=== PATIENT | male | born 1995 | race Caucasian/White ===

== ENCOUNTER 2017-05-26 01:55 | Emergency (ER) | payer OTHER ==
[2017-05-26] MEDS ORDERED: DEXAMETHASONE 10 MG/ML VIAL PO ONE (02:11)
[2017-05-26] MEDS ORDERED: IBUPROFEN 200 MG TAB PO ONE (02:11)
--- NOTE | 2017-05-26 02:19 | EDPHY ---
H & P Stated Complaint: THROAT SWELLING AND WHITE SPOTS FOR DAYS Time Seen by Provider: 05/26/17 02:04 HPI/ROS: Chief Complaint: Throat pain HPI: 21-year-old male's has been having progressively worse sore throat for the past 3 days. Patient states symptoms started off as a viral upper respiratory type symptoms with cough and congestion. Does sometimes have gone he has been having worsening throat pain. Hurts to swallow. He is able swallow liquids and solids. Does not have a history of similar episodes in the past. No other recent illness. He is up-to-date on his immunizations. Does not have a history of strep throat as a child. ROS: 10 point Review of Systems is negative except as noted in the HPI. PMH: None Social History: No smoking, occasional alcohol, no recreational drug use Family History: non-contributory Physical Exam: Gen: Awake, Alert, No Distress HEENT: Nose: no rhinorrhea Eyes: PERRLA, EOMI Mouth: Moist mucosa oropharynx: He has got significantly hypertrophied tonsils with exudate and moderate erythema. Uvula is midline. There is no a symmetric swelling to suggest peritonsillar abscess. Airway is patent Neck: Supple, no JVD Chest: nontender, lungs clear to auscultation Heart: S1, S2 normal, no murmur Abd: Soft, non-tender, no guarding Back: no CVA tenderness, no midline tenderness Ext: no edema, non-tender Skin: no rash Neuro: CN II-XII intact, Sensation grossly intact, Strength 5/5 in bilateral upper and lower extremities - Personal History Current Tetanus/Diphtheria Vaccine: Yes Current Tetanus Diphtheria and Acellular Pertussis (TDAP): Yes - Medical/Surgical History Hx Asthma: No Hx Chronic Respiratory Disease: No Hx Diabetes: No Hx Cardiac Disease: No Hx Renal Disease: No Hx Cirrhosis: No Hx Alcoholism: No Hx HIV/AIDS: No Hx Splenectomy or Spleen Trauma: No Other PMH: DENIES - Social History Smoking Status: Never smoked Constitutional: Initial Vital Signs Temperature (C) 36.6 C 05/26/17 01:58 Heart Rate 65 05/26/17 01:58 Respiratory Rate 18 05/26/17 01:58 Blood Pressure 134/88 H 05/26/17 01:58 O2 Sat (%) 98 05/26/17 01:58 O2 Delivery Mode Room Air Allergies/Adverse Reactions: CEFALOSPORINS Allergy (Uncoded 05/26/17 02:01) Home Medications: Medication Instructions Recorded Azithromycin [Zithromax] 250 mg PO DAILY #6 tab 05/26/17 Medical Decision Making ED Course/Re-evaluation: Patient is positive for both strep and mono. I suspect this primary infection is mono given his physical exam however will treat him with antibiotics for strep as well. He is allergic to cephalosporins and believes he might be allergic to bend his own as well so will start him on azithromycin. He has been given injury precautions regarding mononucleosis and possible splenomegaly. He will follow up with [facility] for recheck in a few days. - Data Points Laboratory Results: 05/26/17 05/26/17 02:20 02:18 Monoscreen POSITIVE H (NEGATIVE) Group A Strep Screen POSITIVE H (NEGATIVE) Medications Given: Discontinued Medications Azithromycin (Zithromax) 500 mg PO EDNOW ONE PRN Reason: Protocol Stop: 05/26/17 02:41 Last Admin: 05/26/17 02:46 Dose: 500 mg Dexamethasone (Decadron Injection) 10 mg PO EDNOW ONE Stop: 05/26/17 02:12 Last Admin: 05/26/17 02:23 Dose: 10 mg Ibuprofen (Motrin) 400 mg PO EDNOW ONE Stop: 05/26/17 02:12 Last Admin: 05/26/17 02:23 Dose: 400 mg Departure - Departure Disposition: Home, Routine, Self-Care Clinical Impression: Acute streptococcal pharyngitis, Mononucleosis Condition: Good Instructions: Strep Throat (ED), Mononucleosis (ED) Additional Instructions: Alternate acetaminophen (1000 mg) with ibuprofen (400 mg) every 4 hours as needed for fevers, chills, aches or pain. Please take your full course of antibiotics. Follow up at [facility] in 3-4 days if symptoms are not improving. Return to the emergency department for worsening pain with swallowing, high fevers or chills, nausea vomiting, difficulty breathing, abdominal pain, or any other concerns. Referrals: [facility],. [Clinic] - As per Instructions Prescriptions: Azithromycin [Zithromax] 250 mg PO DAILY #6 tab
[2017-05-26] MEDS ORDERED: AZITHROMYCIN 250 MG TAB PO ONE (02:40)
[2017-05-26 03:05] VITALS: BP 114/75; PULSE 52; RESP 16; TEMP 98.2; O2SAT 96
== END 2017-05-26 03:05 | disposition home or self-care (01) ==
DX: J02.0 Streptococcal pharyngitis (principal); B27.90 Infectious mononucleosis, unspecified without complication
CPT/HCPCS: J1100